=== PATIENT | female | born 1990 | race Caucasian/White ===

== ENCOUNTER 2017-10-31 08:42 | Emergency (ER) | payer MEDICAID ==
[2017-10-31] MEDS ORDERED: Sodium Chloride 0.9% 1,000 ML IV SCH ×3 (09:30→11:30)
[2017-10-31] MEDS ORDERED: Ondansetron 4 MG/2 ML SDV IVPUSH ONE ×2 (09:32→11:21)
--- NOTE | 2017-10-31 09:32 | EDM.PDOC ---
ED HPI GENERAL MEDICAL PROBLEM - General Chief Complaint: Gastrointestinal Problem Stated Complaint: LEFT SIDE PAIN,LIGHTHEADED,VOMITING Time Seen by Provider: 10/31/17 09:32 Source of Information: Reports: Patient History Limitations: Reports: No Limitations - History of Present Illness INITIAL COMMENTS - FREE TEXT/NARRATIVE: pt is about 8 weeks and she is vomiting markdly. She has had problems with her previous pregnancies particularly her little girl. She has slight left lower abdomanal pain. She has no spotting. Onset: Gradual, Other ( She has vomited alot for the past 3 days. ) Duration: Day(s): Location: Reports: Abdomen, Other (pt is 8 weeks / ) Associated Symptoms: Reports: Nausea/Vomiting, Weakness - Related Data Allergies Allergy/AdvReac Type Severity Reaction Status Date / Time codeine Allergy Swelling Verified 10/31/17 08:59 iodine Allergy Itching Verified 10/31/17 08:59 Opioids - Morphine Analogues Allergy Rash Verified 10/31/17 08:59 scopolamine Allergy Other Verified 10/31/17 08:59 shellfish derived Allergy Rash Verified 10/31/17 08:59 Home Meds: Home Meds NK [No Known Home Meds] 10/31/17 [History] Past Medical History HEENT History: Reports: Impaired Vision Respiratory History: Reports: Asthma 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: Neurological History: Reports: Migraines - Past Surgical History HEENT Surgical History: Reports: Adenoidectomy, Tonsillectomy Female Surgical History: Reports: Oophorectomy Social & Family History - Tobacco Use Smoking Status *Q: Never Smoker - Recreational Drug Use Recreational Drug Use: No ED ROS GENERAL - Review of Systems Review Of Systems: See Below Constitutional: Reports: Weakness, Fatigue HEENT: Reports: No Symptoms Respiratory: Reports: No Symptoms Cardiovascular: Reports: No Symptoms Endocrine: Reports: No Symptoms GI/Abdominal: Reports: Abdominal Pain, Nausea, Vomiting : Reports: No Symptoms ED EXAM - Physical Exam Exam: See Below Text/Narrative:: pt arrived feeling weak and dry. She is about 8 weeks . Exam Limited By: No Limitations General Appearance: Alert, Anxious, Mild Distress Ears: Normal TMs Nose: Normal Inspection Throat/Mouth: Normal Inspection Head: Atraumatic Neck: Normal Inspection Respiratory/Chest: No Respiratory Distress Cardiovascular: Regular Rate, Rhythm, Tachycardia GI/Abdominal Exam: Soft, Non-Tender Rectal Exam: Deferred Neurological: Alert, Oriented, Normal Cognition Psychiatric: Normal Affect Course - Vital Signs Last Recorded V/S: Last Vital Signs Temp 36.6 C 10/31/17 08:55 Pulse 65 10/31/17 08:55 Resp 15 10/31/17 08:55 BP 119/79 10/31/17 08:55 Pulse Ox - Orders/Labs/Meds Orders: Active Orders 24 hr Category Date Time Status OB Ltd 1 or More Fetus [US] Stat Exams 10/31/17 12:06 Ordered OB Transvaginal [US] Stat Exams 10/31/17 12:06 Ordered CULTURE URINE [RM] Stat Lab 10/31/17 11:09 Received UA W/MICROSCOPIC [URIN] Urgent Lab 10/31/17 09:39 Ordered Sodium Chloride 0.9% [Normal Saline] 1,000 ml Med 10/31/17 09:30 Active IV ASDIRECTED Sodium Chloride 0.9% [Normal Saline] 1,000 ml Med 10/31/17 10:30 Active IV ASDIRECTED Sodium Chloride 0.9% [Normal Saline] 1,000 ml Med 10/31/17 11:30 Active IV ASDIRECTED Medication Orders Sodium Chloride (Normal Saline) 1,000 mls @ 999 mls/hr IV ASDIRECTED MICHAEL Last Admin: 10/31/17 09:40 Dose: 999 mls/hr Sodium Chloride (Normal Saline) 1,000 mls @ 999 mls/hr IV ASDIRECTED MICHAEL Last Admin: 10/31/17 10:41 Dose: 999 mls/hr Sodium Chloride (Normal Saline) 1,000 mls @ 999 mls/hr IV ASDIRECTED MICHAEL Last Admin: 10/31/17 11:37 Dose: 999 mls/hr Labs: Laboratory Tests 10/31/17 10/31/17 10/31/17 Range/Units 09:37 09:37 09:39 WBC 6.6 (4.5-11.0) K/uL RBC 4.88 (3.30-5.50) M/uL Hgb 14.5 (12.0-15.0) g/dL Hct 41.2 (36.0-48.0) % MCV 84 (80-98) fL MCH 30 (27-31) pg MCHC 35 (32-36) % Plt Count 270 (150-400) K/uL Neut % (Auto) 74 H (36-66) % Lymph % (Auto) 18 L (24-44) % [place] % (Auto) 7 H (2-6) % Eos % (Auto) 1 L (2-4) % Baso % (Auto) 0 (0-1) % Sodium 140 (140-148) mmol/L Potassium 3.6 (3.6-5.2) mmol/L Chloride 104 (100-108) mmol/L Carbon Dioxide 26 (21-32) mmol/L Anion Gap 10.1 (5.0-14.0) mmol/L BUN 7 (7-18) mg/dL Creatinine 0.7 (0.6-1.0) mg/dL Est Cr Clr Drug Dosing 117.39 mL/min Estimated GFR (MDRD) > 60 (>60) Glucose 86 (74-106) mg/dL Calcium 9.1 (8.5-10.1) mg/dL Total Bilirubin 0.4 (0.2-1.0) mg/dL AST 12 L (15-37) U/L ALT 22 (12-78) U/L Alkaline Phosphatase 54 (46-116) U/L Total Protein 7.1 (6.4-8.2) g/dL Albumin 3.9 (3.4-5.0) g/dL Globulin 3.2 (2.3-3.5) g/dL Albumin/Globulin Ratio 1.2 (1.2-2.2) Urine Color Yellow Urine Appearance Turbid Urine pH 7.0 (4.5-8.0) Ur Specific [place] 1.020 (1.008-1.030) Urine Protein Negative (NEGATIVE) mg/dL Urine Glucose (UA) Normal (NEGATIVE) mg/dL Urine Ketones Negative (NEGATIVE) mg/dL Urine Occult Blood Negative (NEGATIVE) Urine Nitrite Negative (NEGATIVE) Urine Bilirubin Small (NEGATIVE) Urine Urobilinogen 1 (NORMAL) mg/dL Ur Leukocyte Esterase Moderate (NEGATIVE) Urine RBC 0-5 (0-5) Urine WBC 5-10 H (0-5) Ur Epithelial Cells Many Amorphous Sediment Many Urine Bacteria Moderate Urine Mucus Few Meds: Medications Generic Name Dose Route Start Last Admin Trade Name Freq PRN Reason Stop Dose Admin Sodium Chloride 1,000 mls @ 999 mls/hr 10/31/17 09:30 10/31/17 09:40 Normal Saline IV 999 mls/hr ASDIRECTED MICHAEL Administration Sodium Chloride 1,000 mls @ 999 mls/hr 10/31/17 10:30 10/31/17 10:41 Normal Saline IV 999 mls/hr ASDIRECTED MICHAEL Administration Sodium Chloride 1,000 mls @ 999 mls/hr 10/31/17 11:30 10/31/17 11:37 Normal Saline IV 999 mls/hr ASDIRECTED MICHAEL Administration Discontinued Medications Generic Name Dose Route Start Last Admin Trade Name Freq PRN Reason Stop Dose Admin Ondansetron HCl 4 mg 10/31/17 09:32 10/31/17 09:46 Zofran IVPUSH 10/31/17 09:33 4 mg ONETIME ONE Administration Ondansetron HCl 4 mg 10/31/17 11:21 10/31/17 11:35 Zofran IVPUSH 10/31/17 11:22 4 mg ONETIME ONE Administration - Re-Assessments/Exams Free Text/Narrative Re-Assessment/Exam: 10/31/17 12:58 pt was given 3 liters of fluid and she is feeling better. She has had some pain in her left lower abdoman with a past history of a ovarian cyst. She had an US and the baby looked good and there was no large cyst in the left adnexal area. Departure - Departure Time of Disposition: 12:59 Disposition: Home, Self-Care 01 Condition: Fair Clinical Impression: Hyperemesis arising during , Dehydration - Discharge Information Referrals: PCP,None [Primary Care Provider] - Forms: ED Department Discharge Care Plan Goals: zoforan subling q6h prn for nausea, encourage fluids. - My Orders Last 24 Hours: My Active Orders 10/31/17 09:30 Sodium Chloride 0.9% [Normal Saline] 1,000 ml IV ASDIRECTED 10/31/17 09:39 UA W/MICROSCOPIC [URIN] Urgent 10/31/17 10:30 Sodium Chloride 0.9% [Normal Saline] 1,000 ml IV ASDIRECTED 10/31/17 11:09 CULTURE URINE [RM] Stat 10/31/17 11:30 Sodium Chloride 0.9% [Normal Saline] 1,000 ml IV ASDIRECTED 10/31/17 12:06 OB Ltd 1 or More Fetus [US] Stat OB Transvaginal [US] Stat - Assessment/Plan Last 24 Hours: My Active Orders 10/31/17 09:30 Sodium Chloride 0.9% [Normal Saline] 1,000 ml IV ASDIRECTED 10/31/17 09:39 UA W/MICROSCOPIC [URIN] Urgent 10/31/17 10:30 Sodium Chloride 0.9% [Normal Saline] 1,000 ml IV ASDIRECTED 10/31/17 11:09 CULTURE URINE [RM] Stat 10/31/17 11:30 Sodium Chloride 0.9% [Normal Saline] 1,000 ml IV ASDIRECTED 10/31/17 12:06 OB Ltd 1 or More Fetus [US] Stat OB Transvaginal [US] Stat
--- NOTE | 2017-10-31 13:33 | US ---
OB Ltd 1 or More Fetus, OB Transvaginal HISTORY: Left lower abdominal pain. COMPARISON: Ultrasound 10/18/2017. FINDINGS: There is a single live intrauterine gestation with a crown-rump length of 2.4 cm compatible with a ultrasound age of 9 weeks 1 day. There is been normal range interval growth from prior ultras ound. Yolk sac is identified. Estimated date of confinement is 06/04/2018. heart rate 167 bpm. The left ovary appears normal the maternal right ovary has been removed by history. Impression: 1. Early live intrauterine gestation 9 weeks 1 day with no complications seen.
== END 2017-10-31 13:35 | disposition home or self-care (01) ==
LOC: JP.ED 08:42
DX: O21.0 Mild hyperemesis gravidarum (principal); O99.281 Endocrine, nutritional and metabolic diseases complicating pregnancy, first trimester; E86.0 Dehydration; Z88.5 Allergy status to narcotic agent; Z88.8 Allergy status to other drugs, medicaments and biological substances; Z91.013 Allergy to seafood; Z3A.08 8 weeks gestation of pregnancy
CPT/HCPCS: 36415; 76815; 76817; 80053; 81001; 85025; 87086; 96361; 96374; 96376; 99284; J2405; J7040

== ENCOUNTER 2017-11-03 21:19 | Emergency (ER) | payer MEDICAID ==
[2017-11-03] MEDS ORDERED: Ondansetron 4 MG/2 ML SDV IVPUSH ONE (22:00)
[2017-11-03] MEDS ORDERED: Sodium Chloride 0.9% 1,000 ML IV SCH (22:00)
--- NOTE | 2017-11-03 22:34 | EDM.PDOC ---
ED HPI GENERAL MEDICAL PROBLEM - General Chief Complaint: General Stated Complaint: DEHYDRATED Time Seen by Provider: 11/03/17 22:00 Source of Information: Reports: Patient History Limitations: Reports: No Limitations - History of Present Illness INITIAL COMMENTS - FREE TEXT/NARRATIVE: 27-year-old female about 9 weeks along with her third has developed some persistent nausea and vomiting over the past several weeks. She was in 2 days ago, had a very complete workup including blood work, ultrasound that was very reassuring but today her emesis is persistent despite Zofran. No fevers or chills but she was getting dizzy and lightheaded. She took her Zofran at 11 AM, did keep her noon meal down but then redeveloped emesis, I'm unsure why she didn 't take any Zofran this evening. Severity: Moderate Associated Symptoms: Reports: Other (Think she may be constipated). Denies: Fever/Chills, Headaches, Shortness of Breath - Related Data Allergies Allergy/AdvReac Type Severity Reaction Status Date / Time codeine Allergy Swelling Verified 11/03/17 21:44 iodine Allergy Itching Verified 11/03/17 21:44 Opioids - Morphine Analogues Allergy Rash Verified 11/03/17 21:44 scopolamine Allergy Other Verified 11/03/17 21:44 shellfish derived Allergy Rash Verified 11/03/17 21:44 Home Meds: Home Meds NK [No Known Home Meds] 10/31/17 [History] Past Medical History HEENT History: Reports: Impaired Vision Respiratory History: Reports: Asthma [employer] History: Reports: Neurological History: Reports: Migraines - Past Surgical History HEENT Surgical History: Reports: Adenoidectomy, Tonsillectomy Female Surgical History: Reports: Oophorectomy Social & Family History - Tobacco Use Smoking Status *Q: Never Smoker - Caffeine Use Caffeine Use: Reports: None - Recreational Drug Use Recreational Drug Use: No ED ROS GENERAL - Review of Systems Review Of Systems: See Below Constitutional: Reports: Malaise. Denies: Fever, Chills HEENT: Denies: Throat Pain Respiratory: Denies: Shortness of Breath, Cough Cardiovascular: Denies: Chest Pain GI/Abdominal: Reports: Constipation, Nausea, Vomiting. Denies: Abdominal Pain : Reports: No Symptoms Skin: Reports: No Symptoms Neurological: Reports: Dizziness ED EXAM, GENERAL - Physical Exam Exam: See Below Exam Limited By: No Limitations General Appearance: Alert, Mild Distress (Actively vomiting and appears uncomfortable) Eye Exam: Bilateral Eye: Normal Inspection (Normal hydration) Respiratory/Chest: No Respiratory Distress Cardiovascular: Regular Rate, Rhythm. No: Tachycardia Extremities: Normal Inspection Neurological: Alert, Oriented Psychiatric: Normal Affect, Normal Mood Skin Exam: Warm, Dry Course - Vital Signs Last Recorded V/S: Last Vital Signs Temp 98.3 F 11/03/17 21:51 Pulse 72 11/03/17 21:51 Resp 15 11/03/17 21:51 BP 129/86 11/03/17 21:51 Pulse Ox 100 11/03/17 21:51 - Orders/Labs/Meds Meds: Medications Discontinued Medications Generic Name Dose Route Start Last Admin Trade Name Carlosq PRN Reason Stop Dose Admin Sodium Chloride 1,000 mls @ 1,000 mls/hr 11/03/17 22:00 11/03/17 22:15 Normal Saline IV 1,000 mls/hr ASDIRECTED MICHAEL Administration Ondansetron HCl 4 mg 11/03/17 22:00 11/03/17 22:16 Zofran IVPUSH 11/03/17 22:01 4 mg ONETIME ONE Administration - Re-Assessments/Exams Free Text/Narrative Re-Assessment/Exam: 11/03/17 22:33 Patient was given 1 L of normal saline along with 4 mg of IV Zofran. She is to use her Zofran on an as-needed basis. 11/03/17 23:01 After the IV Zofran, the patient remained comfortable while getting IV fluids. She should follow up as needed, and continue her when necessary Zofran. Departure - Departure Time of Disposition: 23:20 Disposition: Home, Self-Care 01 Condition: Good Clinical Impression: Hyperemesis arising during - Discharge Information Instructions: Nausea and Vomiting, Adult, [id number] Referrals: PCP,None [Primary Care Provider] - Forms: ED Department Discharge Care Plan Goals: Concentrate on fluids tonight, and increase diet and activity as tolerated. Use Zofran on a regular basis if needed. Return if persistent vomiting and medications are not working.
== END 2017-11-03 23:21 | disposition home or self-care (01) ==
LOC: JP.ED 21:19
DX: O21.0 Mild hyperemesis gravidarum (principal); Z88.5 Allergy status to narcotic agent; Z88.8 Allergy status to other drugs, medicaments and biological substances; Z3A.09 9 weeks gestation of pregnancy; Z91.013 Allergy to seafood
CPT/HCPCS: 96374; 99284; J2405; J7040

== ENCOUNTER 2017-12-05 21:02 | Emergency (ER) | payer MEDICAID ==
[2017-12-05] MEDS ORDERED: Sodium Chloride 0.9% 10 ML Syringe FLUSH PRN (21:12)
[2017-12-05] MEDS ORDERED: Metoclopramide 10 MG/2 ML SDV IVPUSH ONE (21:12)
[2017-12-05] MEDS ORDERED: diphenhydrAMINE 50 MG/ML SDV IVPUSH ONE (21:12)
[2017-12-05] MEDS ORDERED: Sodium Chloride 0.9% 1,000 ML IV SCH (21:15)
--- NOTE | 2017-12-05 21:20 | EDM.PDOC ---
ED HPI GENERAL MEDICAL PROBLEM - General Chief Complaint: Headache Stated Complaint: MIGRAINE/VOMITING/14 WKS PG Time Seen by Provider: 12/05/17 21:15 Source of Information: Reports: Patient History Limitations: Reports: No Limitations - History of Present Illness INITIAL COMMENTS - FREE TEXT/NARRATIVE: Abigail is a 27-year-old female who presents to the emergency department today with complaints of a migraine headache that started this afternoon. Patient reports history of migraine headaches, she endorses nausea and several episodes of vomiting prior to arrival here. Patient is an estimated 13 weeks , she does complains of what she feels is ligament pain on the right lower side of her pelvis that gets worse with movement much like the ligament pain she had with her prior . Patient denies any fever, head trauma or vaginal bleeding/discharge. Patient denies any photophobia. Patient has not taken any medications for her symptoms secondary to the vomiting. 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 - Physical Exam Exam: See Below Exam Limited By: No Limitations General Appearance: Alert, Anxious Eye Exam: Bilateral Eye: EOMI, Nystagmus (right and left lateral gaze, one beat) , PERRL Throat/Mouth: Normal Inspection, Normal Oropharynx Head Exam: Atraumatic Neck: Supple, Non-Tender, Full Range of Motion Respiratory/Chest: No Respiratory Distress, Lungs Clear Cardiovascular: Normal Peripheral Pulses, No Murmur, Tachycardia GI/Abdominal: Normal Bowel Sounds, Soft, Tender (mild, right pelvis/groin area) , Other (no tenderness at Mcburney's point negative rovsing sign) Neuro Exam (Abbreviated): Alert, Oriented, CN II-XII Intact Extremities: Normal Inspection Psychiatric: Anxious Skin Exam: Warm, Dry, Intact Course - Vital Signs Last Recorded V/S: Last Vital Signs Temp 36.7 C 12/05/17 21:14 Pulse 107 H 12/05/17 21:14 Resp 18 12/05/17 21:14 BP 123/77 12/05/17 21:14 Pulse Ox 100 12/05/17 21:14 Abigail is a 27 year old female who presents to the ED today with c/o migraine headache. Please refer to history of present illness and focused exam. Patient on arrival here is mildly tachycardic, she is normotensive and afebrile. Peripheral IV was established, patient was given a liter of normal saline with Reglan and Benadryl for her nausea, vomiting, and headache. Blood work was obtained given patient's complaints of right groin pain, she doesn't mild leukocytosis is not tender at McBurney's point and afebrile so I feel an acute appendicitis is unlikely. Temp and metabolic panel returns with a mildly low sodium of 138, potassium is 3.4 consistent with a mild hypokalemia, anion gap is mildly elevated at 15.4. Remaining CMP is unremarkable. UA is negative for infection. Patient is feeling much better here after fluids and medications. I feel patient is stable to be discharged home with ongoing supportive care and cleaning adequate hydration, vitamins and I will supply her with Zofran for nausea and vomiting. Patient was strongly encouraged to follow up with BILING[employer] TEACHER this next week for follow-up. If patient's right groin pain migrates towards her right lower quadrants where she develops a fever or any other worsening symptoms I would like her reevaluated, other reasons to return to the emergency department were discussed, patient is agreeable to plan of care and was discharged in stable condition. - Orders/Labs/Meds Orders: Active Orders 24 hr Category Date Time Status Peripheral IV Care [RC] . DIRECTED Care 12/05/17 21:12 Active RT Aerosol Therapy [RC] ASDIRECTED Care 12/05/17 21:27 Active URINALYSIS W/MICROSCOPIC [UA W/MICROSCOPIC] [URIN] Stat Lab 12/05/17 21:44 Ordered Sodium Chloride 0.9% [Normal Saline] 1,000 ml Med 12/05/17 21:15 Active IV ASDIRECTED Sodium Chloride 0.9% [Saline Flush] Med 12/05/17 21:12 Active 10 ml FLUSH ASDIRECTED PRN Peripheral IV Insertion Adult [OM.PC] Routine Oth 12/05/17 21:12 Ordered Medication Orders Sodium Chloride (Normal Saline) 1,000 mls @ 999 mls/hr IV ASDIRECTED MICHAEL Last Admin: 12/05/17 21:24 Dose: 999 mls/hr Sodium Chloride (Saline Flush) 10 ml FLUSH ASDIRECTED PRN PRN Reason: Keep Vein Open Last Admin: 12/05/17 21:27 Dose: 10 ml Labs: Laboratory Tests 12/05/17 12/05/17 12/05/17 Range/Units 21:25 21:25 21:44 WBC 11.4 H (4.5-11.0) K/uL RBC 4.78 (3.30-5.50) M/uL Hgb 14.4 (12.0-15.0) g/dL Hct 39.8 (36.0-48.0) % MCV 83 (80-98) fL MCH 30 (27-31) pg MCHC 36 (32-36) % Plt Count 269 (150-400) K/uL Neut % (Auto) 83 H (36-66) % Lymph % (Auto) 11 L (24-44) % [place] % (Auto) 5 (2-6) % Eos % (Auto) 1 L (2-4) % Baso % (Auto) 0 (0-1) % Sodium 138 L (140-148) mmol/L Potassium 3.4 L (3.6-5.2) mmol/L Chloride 103 (100-108) mmol/L Carbon Dioxide 23 (21-32) mmol/L Anion Gap 15.4 H (5.0-14.0) mmol/L BUN 4 L (7-18) mg/dL Creatinine 0.7 (0.6-1.0) mg/dL Est Cr Clr Drug Dosing 121.78 mL/min Estimated GFR (MDRD) > 60 (>60) Glucose 90 (74-106) mg/dL Calcium 8.8 (8.5-10.1) mg/dL Total Bilirubin 0.3 (0.2-1.0) mg/dL AST 13 L (15-37) U/L ALT 22 (12-78) U/L Alkaline Phosphatase 57 (46-116) U/L Total Protein 7.2 (6.4-8.2) g/dL Albumin 3.5 (3.4-5.0) g/dL Globulin 3.7 H (2.3-3.5) g/dL Albumin/Globulin Ratio 1.0 L (1.2-2.2) Urine Color Yellow Urine Appearance Slightly cloudy Urine pH 6.0 (4.5-8.0) Ur Specific [place] 1.025 (1.008-1.030) Urine Protein Negative (NEGATIVE) mg/dL Urine Glucose (UA) Normal (NEGATIVE) mg/dL Urine Ketones Negative (NEGATIVE) mg/dL Urine Occult Blood Negative (NEGATIVE) Urine Nitrite Negative (NEGATIVE) Urine Bilirubin Negative (NEGATIVE) Urine Urobilinogen Normal (NORMAL) mg/dL Ur Leukocyte Esterase Negative (NEGATIVE) Urine RBC Not seen (0-5) Urine WBC 0-5 (0-5) Ur Epithelial Cells Many Amorphous Sediment Not seen Urine Bacteria Moderate Urine Mucus Few Meds: Medications Generic Name Dose Route Start Last Admin Trade Name Freq PRN Reason Stop Dose Admin Sodium Chloride 1,000 mls @ 999 mls/hr 12/05/17 21:15 12/05/17 21:24 Normal Saline IV 999 mls/hr ASDIRECTED MICHAEL Administration Sodium Chloride 10 ml 12/05/17 21:12 12/05/17 21:27 Saline Flush FLUSH 10 ml ASDIRECTED PRN Administration Keep Vein Open Discontinued Medications Generic Name Dose Route Start Last Admin Trade Name Freq PRN Reason Stop Dose Admin Albuterol 2.5 mg 12/05/17 21:27 12/05/17 21:31 Proventil Neb Soln NEB 12/05/17 21:28 2.5 mg ONETIME ONE Administration Diphenhydramine HCl 50 mg 12/05/17 21:12 12/05/17 21:24 Benadryl IVPUSH 12/05/17 21:13 50 mg ONETIME ONE Administration Metoclopramide HCl 10 mg 12/05/17 21:12 12/05/17 21:24 Reglan IVPUSH 12/05/17 21:13 10 mg ONETIME ONE Administration Departure - Departure Time of Disposition: 23:00 Disposition: Home, Self-Care 01 Clinical Impression: Migraine - Discharge Information Instructions: Migraine Headache, [id number] Referrals: PCP,None [Primary Care Provider] - Forms: ED Department Discharge, Interfacility Transfer EMTALA Additional Instructions: Stay well hydrated. Tylenol for headache as needed. Zofran as needed as prescribed for nausea and vomiting. You need to establish primary OB care and follow-up in the next week. - My Orders Last 24 Hours: My Active Orders 12/05/17 21:12 Peripheral IV Care [RC] . DIRECTED Sodium Chloride 0.9% [Saline Flush] 10 ml FLUSH ASDIRECTED PRN Peripheral IV Insertion Adult [OM.PC] Routine 12/05/17 21:15 Sodium Chloride 0.9% [Normal Saline] 1,000 ml IV ASDIRECTED 12/05/17 21:27 RT Aerosol Therapy [RC] ASDIRECTED 12/05/17 21:44 URINALYSIS W/MICROSCOPIC [UA W/MICROSCOPIC] [URIN] Stat - Assessment/Plan Last 24 Hours: My Active Orders 12/05/17 21:12 Peripheral IV Care [RC] . DIRECTED Sodium Chloride 0.9% [Saline Flush] 10 ml FLUSH ASDIRECTED PRN Peripheral IV Insertion Adult [OM.PC] Routine 12/05/17 21:15 Sodium Chloride 0.9% [Normal Saline] 1,000 ml IV ASDIRECTED 12/05/17 21:27 RT Aerosol Therapy [RC] ASDIRECTED 12/05/17 21:44 URINALYSIS W/MICROSCOPIC [UA W/MICROSCOPIC] [URIN] Stat
[2017-12-05] MEDS ORDERED: Albuterol 0.083% 2.5 MG/3 ML Neb Soln NEB ONE (21:27)
[2017-12-05] MEDS ORDERED: Ondansetron 4 MG/2 ML SDV IVPUSH ONE (22:04)
== END 2017-12-05 22:26 | disposition home or self-care (01) ==
LOC: JP.ED 21:02
DX: G43.909 Migraine, unspecified, not intractable, without status migrainosus (principal); Z88.5 Allergy status to narcotic agent; Z91.09 Other allergy status, other than to drugs and biological substances; Z91.013 Allergy to seafood
CPT/HCPCS: 36415; 80053; 81001; 85025; 94640; 96361; 96374; 96375; 99284; J1200; J2405; J2765; J7040; J7050

== ENCOUNTER 2020-01-16 08:49 | Emergency (ER) | payer OTHER ==
[2020-01-16] MEDS ORDERED: Albuterol 8 GM Inhaler INH ONE (10:29)
--- NOTE | 2020-01-16 10:41 | EDM.PDOC ---
ED HPI GENERAL MEDICAL PROBLEM - General Chief Complaint: General Stated Complaint: RAPID HEARTRATE,COUGH,BODY ACHES,FEVER Time Seen by Provider: 01/16/20 10:15 Source of Information: Reports: Patient History Limitations: Reports: No Limitations - History of Present Illness INITIAL COMMENTS - FREE TEXT/NARRATIVE: This is a 29 yo who presents with concerns of cough. Symptoms have been ongoing approx two days. Cough has been productive of clear sputum. Some associated pleuritic chest pain and fevers. Son diagnosed with respiratory infection several days ago. Mild dyspnea. No recent travel or other sick contract. No LE swelling or pain. Does have hx of asthma, has been off inhaler for some time. chest wall Pain Score (Numeric/FACES): 7 - Related Data Allergies Allergy/AdvReac Type Severity Reaction Status Date / Time codeine Allergy Swelling Verified 01/16/20 09:38 iodine Allergy Itching Verified 01/16/20 09:38 Opioids - Morphine Analogues Allergy Rash Verified 01/16/20 09:38 shellfish derived Allergy Rash Verified 01/16/20 09:38 scopolamine AdvReac Other Verified 01/16/20 09:38 Home Meds: Home Meds Albuterol [Ventolin HFA] 2 puff INH Q6H PRN 05/20/18 [History] Ondansetron [Zofran ODT] 4 mg PO Q6H PRN 05/20/18 [History] #103/Iron Fumarate/Fa [ ] 1 tab PO DAILY 05/20/18 [History] Ferrous Sulfate 325 mg PO BID #60 tablet 06/09/18 [Rx] Albuterol [Proventil Neb Soln] 2.5 mg .XX BID PRN 01/16/20 [History] Sertraline [Zoloft] 50 mg PO DAILY 01/16/20 [History] Past Medical History HEENT History: Reports: Impaired Vision Respiratory History: Reports: Asthma Gastrointestinal History: Reports: GERD Genitourinary History: Reports: UTI, Recurrent RUG SIZER History: Reports: Other RUG SIZER History: OWEN-06/06/2018 Neurological History: Reports: Migraines Psychiatric History: Reports: Anxiety Dermatologic History: Reports: Psoriasis - Past Surgical History HEENT Surgical History: Reports: Adenoidectomy, Tonsillectomy Female Surgical History: Reports: Oophorectomy, Tubal Ligation Social & Family History - Family History Family Medical History: Noncontributory - Tobacco Use Smoking Status *Q: Never Smoker - Caffeine Use Caffeine Use: Reports: Coffee - Recreational Drug Use Recreational Drug Use: No ED ROS GENERAL - Review of Systems Review Of Systems: See Below Constitutional: Reports: No Symptoms HEENT: Reports: No Symptoms Respiratory: Reports: Shortness of Breath, Cough Cardiovascular: Reports: No Symptoms Endocrine: Reports: No Symptoms GI/Abdominal: Reports: No Symptoms : Reports: No Symptoms Musculoskeletal: Reports: No Symptoms Skin: Reports: No Symptoms Neurological: Reports: No Symptoms Psychiatric: Reports: No Symptoms Hematologic/Lymphatic: Reports: No Symptoms Immunologic: Reports: No Symptoms ED EXAM, GENERAL - Physical Exam Exam: See Below Exam Limited By: No Limitations General Appearance: Alert, No Apparent Distress Nose: Normal Inspection Throat/Mouth: Normal Inspection Head: Atraumatic, Normocephalic Respiratory/Chest: Lungs Clear Cardiovascular: Tachycardia GI/Abdominal: Soft, Non-Tender Back Exam: Normal Inspection Extremities: Normal Inspection Neurological: Alert, Oriented Psychiatric: Normal Affect, Normal Mood Skin Exam: Warm, Dry Course - Vital Signs Last Recorded V/S: Last Vital Signs Temp 36.8 C 01/16/20 09:48 Pulse 100 01/16/20 09:48 Resp 16 01/16/20 09:48 BP 130/79 01/16/20 09:48 Pulse Ox 99 01/16/20 09:48 - Orders/Labs/Meds Orders: Active Orders 24 hr Category Date Time Status RT Post Treatment Assessment [RC] Click to Edit Care 01/16/20 10:29 Active CORONAVIRUS COVID-19, [facility] Stat Lab 01/16/20 10:52 Received Meds: Medications Discontinued Medications Generic Name Dose Route Start Last Admin Trade Name Freq PRN Reason Stop Dose Admin Albuterol 1 gm 01/16/20 10:29 01/16/20 10:38 Ventolin Hfa INH 01/16/20 10:30 2 puff ONETIME ONE Administration - Re-Assessments/Exams Free Text/Narrative Re-Assessment/Exam: 29 yo presents with concerns of cough Noted to be tachycardic on exam. Lungs clear. Has sick contact at home. No s/s of DVT, do not believe we need PE Work up Suspect this is infectious, most likely viral. Will obtain CXR [place] albuterol HFA Swabbing for COVID, will need to self isolate until returns If imaging unrevealing will discharge with supportive cares. 01/16/20 10:49 Free Text/Narrative Re-Assessment/Exam: CXR showed possible LLL pneumonia. Started on z alonso Stressed importance of isolation until COVID returns and discussed return precautions. 01/16/20 19:10 Departure - Departure Time of Disposition: 12:17 Disposition: Home, Self-Care 01 Clinical Impression: Pneumonia Qualifiers: Pneumonia type: due to unspecified organism Laterality: left Lung location: lower lobe of lung Qualified Code(s): J18.9 - Pneumonia, unspecified organism - Discharge Information *PRESCRIPTION DRUG MONITORING PROGRAM REVIEWED*: No *COPY OF PRESCRIPTION DRUG MONITORING REPORT IN PATIENT HOWIE: No Instructions: Community-Acquired Pneumonia, Adult Referrals: Hamida Cheng CNM [Primary Care Provider] - Forms: ED Department Discharge Additional Instructions: You have a pneumonia on your x ray. Take the prescribed antibiotics We cannot exclude a COVID 19 infection, you and your family need to self isolate until your results return. Sepsis Event Note (ED) - Evaluation Sepsis Screening Result: No Definite Risk - Focused Exam Vital Signs: Vital Signs Temp Pulse Resp BP Pulse Ox 01/16/20 09:48 36.8 C 100 16 130/79 99 01/16/20 09:28 36.8 C 100 16 130/79 99 - My Orders Last 24 Hours: My Active Orders 01/16/20 10:29 RT Post Treatment Assessment [RC] Click to Edit 01/16/20 10:52 CORONAVIRUS COVID-19, [facility] Stat - Assessment/Plan Last 24 Hours: My Active Orders 01/16/20 10:29 RT Post Treatment Assessment [RC] Click to Edit 01/16/20 10:52 CORONAVIRUS COVID-19, [facility] Stat
--- NOTE | 2020-01-16 11:44 | CR ---
CHEST: 2 view CLINICAL HISTORY:Short of breath COMPARISON:None FINDINGS: Heart size and pulmonary vascularity are normal. There is a moderate-sized left lower lobe pneumonia. IMPRESSION: Left lower lobe pneumonia
== END 2020-01-16 12:25 | disposition home or self-care (01) ==
LOC: JP.ED 08:49
DX: J18.9 Pneumonia, unspecified organism (principal); J45.909 Unspecified asthma, uncomplicated; F41.9 Anxiety disorder, unspecified; Z79.899 Other long term (current) drug therapy; Z88.5 Allergy status to narcotic agent; Z91.09 Other allergy status, other than to drugs and biological substances; Z91.013 Allergy to seafood; Z20.828 Contact with and (suspected) exposure to other viral communicable diseases
CPT/HCPCS: 71046; 87635; 94640; 99285; A9270; 99284; U0002

== ENCOUNTER 2021-06-17 12:45 | Emergency (ER) | payer BC, OTHER ==
--- NOTE | 2021-06-17 14:50 | EDM.PDOC ---
<OfficerVicente - Last Filed: 06/17/21 14:48> ED HPI GENERAL MEDICAL PROBLEM - General Chief Complaint: General Stated Complaint: REACTION TO VACCINE Time Seen by Provider: 06/17/21 14:44 Source of Information: Reports: Patient, RN Notes Reviewed History Limitations: Reports: No Limitations - History of Present Illness INITIAL COMMENTS - FREE TEXT/NARRATIVE: 30-year-old female presents emergency department today with multiple complaints including body aches fevers chills low back pain she states she has not been able to urinate as much as usual. Did receive Mederna first dose yesterday. Lower Back Pain Score (Numeric/FACES): 6 - Related Data Allergies Allergy/AdvReac Type Severity Reaction Status Date / Time codeine Allergy Swelling Verified 06/17/21 14:33 iodine Allergy Itching Verified 06/17/21 14:33 Opioids - Morphine Analogues Allergy Rash Verified 06/17/21 14:33 shellfish derived Allergy Rash Verified 06/17/21 14:33 scopolamine AdvReac Other Verified 06/17/21 14:33 Home Meds: Home Meds Albuterol [Ventolin HFA] 2 puff INH Q6H PRN 05/20/18 [History] Ferrous Sulfate 325 mg PO BID #60 tablet 06/09/18 [Rx] Albuterol [Proventil Neb Soln] 2.5 mg .XX BID PRN 01/16/20 [History] Magnesium 30 mg PO DAILY 06/17/21 [History] cephALEXin [Cephalexin] 500 mg PO TID #16 capsule 06/17/21 [Rx] Past Medical History HEENT History: Reports: Impaired Vision Respiratory History: Reports: Asthma Gastrointestinal History: Reports: GERD Genitourinary History: Reports: UTI, Recurrent 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 ARCHITECT History: OWEN-06/06/2018 Neurological History: Reports: Migraines Psychiatric History: Reports: Anxiety Dermatologic History: Reports: Psoriasis - Past Surgical History HEENT Surgical History: Reports: Adenoidectomy, Tonsillectomy Female Surgical History: Reports: Oophorectomy, Tubal Ligation Social & Family History - Family History Family Medical History: No Pertinent Family History - Tobacco Use Tobacco Use Status *Q: Never Tobacco User - Caffeine Use Caffeine Use: Reports: Coffee - Recreational Drug Use Recreational Drug Use: No ED ROS GENERAL - Review of Systems Review Of Systems: See Below Constitutional: Reports: Fever, Chills, Weakness, Fatigue HEENT: Reports: No Symptoms Respiratory: Reports: No Symptoms Cardiovascular: Reports: No Symptoms GI/Abdominal: Reports: No Symptoms : Reports: Incontinence Musculoskeletal: Reports: Muscle Pain ED EXAM, GENERAL - Physical Exam Exam: See Below Exam Limited By: No Limitations General Appearance: Alert, WD/WN, No Apparent Distress Respiratory/Chest: No Respiratory Distress, Lungs Clear, Normal Breath Sounds, No Accessory Muscle Use, Chest Non-Tender Cardiovascular: Regular Rate, Rhythm, No Murmur GI/Abdominal: Soft, Non-Tender Back Exam: Normal Inspection, Full Range of Motion, CVA Tenderness (R). No: CVA Tenderness (L) Departure - Departure Disposition: Home, Self-Care 01 Clinical Impression: Cystitis, Mild dehydration, Hypokalemia Vaccine reaction Qualifiers: Encounter type: initial encounter Qualified Code(s): T50.Z95A - Adverse effect of other vaccines and biological substances, initial encounter - Discharge Information Instructions: Hypokalemia, Urinary Tract Infection, Adult, [id number] Referrals: PCP,None [Primary Care Provider] - Forms: ED Department Discharge Additional Instructions: Drink ample amounts of fluids so that your urine stays very light yellow. Take acetaminophen 1000 mg every 6 hrs until your fever resolves. A prescription for the antibiotic cephalexin was sent to [facility] for your bladder infection, you will need to start this tomorrow by supper time. Recheck tomorrow in the clinic or here if you are not improving markedly. Eat foods more rich in potassium due to your slightly low potassium level today. Sepsis Event Note (ED) - Evaluation Sepsis Screening Result: No Definite Risk <Kushal lBake G - Last Filed: 06/17/21 22:24> Course - Vital Signs Last Recorded V/S: Last Vital Signs Temp 37.7 C 06/17/21 22:12 Pulse 128 H 06/17/21 21:31 Resp 20 06/17/21 21:31 BP 107/70 06/17/21 21:31 Pulse Ox 96 06/17/21 21:31 - Orders/Labs/Meds Orders: Active Orders 24 hr Category Date Time Status Peripheral IV Care [RC] . DIRECTED Care 06/17/21 17:09 Active CULTURE URINE [RM] Urgent Lab 06/17/21 17:08 Received Sodium Chloride 0.9% [Normal Saline] 1,000 ml Med 06/17/21 17:15 Active IV ASDIRECTED Sodium Chloride 0.9% [Normal Saline] 1,000 ml Med 06/17/21 18:45 Active IV ASDIRECTED Sodium Chloride 0.9% [Saline Flush] Med 06/17/21 17:08 Active 10 ml FLUSH ASDIRECTED PRN Peripheral IV Insertion Adult [OM.PC] Urgent Oth 06/17/21 17:08 Ordered Medication Orders Sodium Chloride (Normal Saline) 1,000 mls @ 500 mls/hr IV ASDIRECTED MICHAEL Last Admin: 06/17/21 17:39 Dose: 500 mls/hr Documented by: DAYO Sodium Chloride (Normal Saline) 1,000 mls @ 999 mls/hr IV ASDIRECTED MICHAEL Last Admin: 06/17/21 20:45 Dose: 999 mls/hr Documented by: MALIKA Sodium Chloride (Sodium Chloride 0.9% 10 Ml Syringe) 10 ml FLUSH ASDIRECTED PRN PRN Reason: Keep Vein Open Last Admin: 06/17/21 21:51 Dose: 10 ml Documented by: MALIKA Labs: Laboratory Tests 06/17/21 06/17/21 06/17/21 Range/Units 14:55 14:57 14:57 WBC 7.8 (4.5-11.0) K/uL RBC 4.70 (3.30-5.50) M/uL Hgb 13.6 D (12.0-15.0) g/dL Hct 40.1 (36.0-48.0) % MCV 85 (80-98) fL MCH 29 (27-31) pg MCHC 34 (32-36) % Plt Count 259 (150-400) K/uL Neut % (Auto) 84.9 H (36-66) % Lymph % (Auto) 9.0 L (24-44) % Caroline % (Auto) 5.6 (2-6) % Eos % (Auto) 0.1 L (2-4) % Baso % (Auto) 0.4 (0-1) % D-Dimer, Quantitative 757.67 H (0.0-500.0) ng/mL Sodium 135 L (140-148) mmol/L Potassium 3.3 L (3.6-5.2) mmol/L Chloride 102 (100-108) mmol/L Carbon Dioxide 22 (21-32) mmol/L Anion Gap 14.3 H (5.0-14.0) mmol/L BUN 9 D (7-18) mg/dL Creatinine 0.9 (0.6-1.0) mg/dL Est Cr Clr Drug Dosing 88.88 mL/min Estimated GFR (MDRD) > 60 (>60) Glucose 98 (74-106) mg/dL Lactic Acid (0.4-2.0) mmol/L Calcium 8.5 (8.5-10.1) mg/dL Total Bilirubin 0.5 D (0.2-1.0) mg/dL AST 16 (15-37) U/L ALT 21 (12-78) U/L Alkaline Phosphatase 66 (46-116) U/L C-Reactive Protein (0.0-0.3) mg/dL Total Protein 7.2 (6.4-8.2) g/dL Albumin 3.7 (3.4-5.0) g/dL Globulin 3.5 (2.3-3.5) g/dL Albumin/Globulin Ratio 1.1 L (1.2-2.2) Urine Color (YELLOW) Urine Appearance (CLEAR) Urine pH (5.0-8.0) Ur Specific [place] (1.008-1.030) Urine Protein (NEGATIVE) mg/dL Urine Glucose (UA) (NEGATIVE) mg/dL Urine Ketones (NEGATIVE) mg/dL Urine Occult Blood (NEGATIVE) Urine Nitrite (NEGATIVE) Urine Bilirubin (NEGATIVE) Urine Urobilinogen (0.2-1.0) EU/dL Ur Leukocyte Esterase (NEGATIVE) Urine RBC (0-5) Urine WBC (0-5) Ur Epithelial Cells Amorphous Sediment Urine Bacteria Urine Mucus SARS CoV-2 RNA Rapid [facility] 06/17/21 06/17/21 06/17/21 Range/Units 14:57 14:57 15:41 WBC (4.5-11.0) K/uL RBC (3.30-5.50) M/uL Hgb (12.0-15.0) g/dL Hct (36.0-48.0) % MCV (80-98) fL MCH (27-31) pg MCHC (32-36) % Plt Count (150-400) K/uL Neut % (Auto) (36-66) % Lymph % (Auto) (24-44) % Caroline % (Auto) (2-6) % Eos % (Auto) (2-4) % Baso % (Auto) (0-1) % D-Dimer, Quantitative (0.0-500.0) ng/mL Sodium (140-148) mmol/L Potassium (3.6-5.2) mmol/L Chloride (100-108) mmol/L Carbon Dioxide (21-32) mmol/L Anion Gap (5.0-14.0) mmol/L BUN (7-18) mg/dL Creatinine (0.6-1.0) mg/dL Est Cr Clr Drug Dosing mL/min Estimated GFR (MDRD) (>60) Glucose (74-106) mg/dL Lactic Acid 0.6 (0.4-2.0) mmol/L Calcium (8.5-10.1) mg/dL Total Bilirubin (0.2-1.0) mg/dL AST (15-37) U/L ALT (12-78) U/L Alkaline Phosphatase (46-116) U/L C-Reactive Protein 7.53 H (0.0-0.3) mg/dL Total Protein (6.4-8.2) g/dL Albumin (3.4-5.0) g/dL Globulin (2.3-3.5) g/dL Albumin/Globulin Ratio (1.2-2.2) Urine Color Yellow (YELLOW) Urine Appearance Slightly cloudy A (CLEAR) Urine pH 5.5 (5.0-8.0) Ur Specific [place] >= 1.030 (1.008-1.030) Urine Protein 30 H (NEGATIVE) mg/dL Urine Glucose (UA) Negative (NEGATIVE) mg/dL Urine Ketones 15 H (NEGATIVE) mg/dL Urine Occult Blood Trace-intact H (NEGATIVE) Urine Nitrite Negative (NEGATIVE) Urine Bilirubin Small H (NEGATIVE) Urine Urobilinogen 1.0 (0.2-1.0) EU/dL Ur Leukocyte Esterase Negative (NEGATIVE) Urine RBC 5-10 H (0-5) Urine WBC 10-20 H (0-5) Ur Epithelial Cells Many Amorphous Sediment Not seen Urine Bacteria Moderate Urine Mucus Moderate SARS CoV-2 RNA Rapid [facility] 06/17/21 Range/Units 16:24 WBC (4.5-11.0) K/uL RBC (3.30-5.50) M/uL Hgb (12.0-15.0) g/dL Hct (36.0-48.0) % MCV (80-98) fL MCH (27-31) pg MCHC (32-36) % Plt Count (150-400) K/uL Neut % (Auto) (36-66) % Lymph % (Auto) (24-44) % Caroline % (Auto) (2-6) % Eos % (Auto) (2-4) % Baso % (Auto) (0-1) % D-Dimer, Quantitative (0.0-500.0) ng/mL Sodium (140-148) mmol/L Potassium (3.6-5.2) mmol/L Chloride (100-108) mmol/L Carbon Dioxide (21-32) mmol/L Anion Gap (5.0-14.0) mmol/L BUN (7-18) mg/dL Creatinine (0.6-1.0) mg/dL Est Cr Clr Drug Dosing mL/min Estimated GFR (MDRD) (>60) Glucose (74-106) mg/dL Lactic Acid (0.4-2.0) mmol/L Calcium (8.5-10.1) mg/dL Total Bilirubin (0.2-1.0) mg/dL AST (15-37) U/L ALT (12-78) U/L Alkaline Phosphatase (46-116) U/L C-Reactive Protein (0.0-0.3) mg/dL Total Protein (6.4-8.2) g/dL Albumin (3.4-5.0) g/dL Globulin (2.3-3.5) g/dL Albumin/Globulin Ratio (1.2-2.2) Urine Color (YELLOW) Urine Appearance (CLEAR) Urine pH (5.0-8.0) Ur Specific [place] (1.008-1.030) Urine Protein (NEGATIVE) mg/dL Urine Glucose (UA) (NEGATIVE) mg/dL Urine Ketones (NEGATIVE) mg/dL Urine Occult Blood (NEGATIVE) Urine Nitrite (NEGATIVE) Urine Bilirubin (NEGATIVE) Urine Urobilinogen (0.2-1.0) EU/dL Ur Leukocyte Esterase (NEGATIVE) Urine RBC (0-5) Urine WBC (0-5) Ur Epithelial Cells Amorphous Sediment Urine Bacteria Urine Mucus SARS CoV-2 RNA Rapid [facility] Negative Meds: Medications Generic Name Dose Route Start Last Admin Trade Name Freq PRN Reason Stop Dose Admin Sodium Chloride 1,000 mls @ 500 mls/hr 06/17/21 17:15 06/17/21 17:39 Normal Saline IV 500 mls/hr ASDIRECTED MICHAEL Administration Sodium Chloride 1,000 mls @ 999 mls/hr 06/17/21 18:45 06/17/21 20:45 Normal Saline IV 999 mls/hr ASDIRECTED MICHAEL Administration Sodium Chloride 10 ml 06/17/21 17:08 06/17/21 21:51 Sodium Chloride 0.9% 10 Ml Syringe FLUSH 10 ml ASDIRECTED PRN Administration Keep Vein Open Discontinued Medications Generic Name Dose Route Start Last Admin Trade Name Carlosq PRN Reason Stop Dose Admin Acetaminophen 1,000 mg 06/17/21 21:27 06/17/21 21:47 Acetaminophen 500 Mg Tab PO 06/17/21 21:28 1,000 mg ONETIME ONE Administration Ceftriaxone Sodium 1 gm/ 50 mls @ 100 mls/hr 06/17/21 17:08 06/17/21 17:47 Sodium Chloride IV 06/17/21 17:37 100 mls/hr ONETIME ONE Administration Potassium Chloride 40 meq 06/17/21 21:51 06/17/21 21:59 Potassium Chloride 20 Meq Tab.Er PO 06/17/21 21:52 40 meq ONETIME ONE Administration - Re-Assessments/Exams Free Text/Narrative Re-Assessment/Exam: 06/17/21 22:17 Spiked a fever later in her ER course. Acetaminophen given. Did well walking to the bathroom and back. Lives with her . Will d/c with clinic follow up tomorrow. Departure - Departure Time of Disposition: 22:25 Condition: Fair - Discharge Information *PRESCRIPTION DRUG MONITORING PROGRAM REVIEWED*: Not Applicable *COPY OF PRESCRIPTION DRUG MONITORING REPORT IN PATIENT HOWIE: Not Applicable Sepsis Event Note (ED) - Focused Exam Vital Signs: Vital Signs Temp Temp Pulse Resp BP Pulse Ox 06/17/21 22:12 37.7 C 06/17/21 21:47 40 C H 06/17/21 21:31 128 H 20 107/70 96 06/17/21 20:59 119 H 27 H 94/49 L 98 06/17/21 20:14 114 H 26 H 122/70 98 06/17/21 18:25 124 H 24 H 105/55 L 98 06/17/21 17:09 116 H 26 H 114/71 100 06/17/21 16:11 111 H 18 114/68 99 06/17/21 15:37 122 H 20 121/60 99 06/17/21 14:31 37.3 C 130 H 20 146/78 H 99
[2021-06-17] MEDS ORDERED: Sodium Chloride 0.9% 10 ML Syringe FLUSH PRN (17:08)
[2021-06-17] MEDS ORDERED: cefTRIAXone 1 GM in Sodium Chloride 0.9% 50 ML IV ONE (17:08)
[2021-06-17] MEDS ORDERED: Sodium Chloride 0.9% 1,000 ML IV SCH ×2 (17:15→18:45)
[2021-06-17] MEDS ORDERED: Acetaminophen 500 MG Tab PO ONE (21:27)
[2021-06-17] MEDS ORDERED: Potassium Chloride 20 MEQ Tab.ER PO ONE (21:51)
== END 2021-06-17 22:45 | disposition home or self-care (01) ==
LOC: JP.ED 12:45
DX: N30.90 Cystitis, unspecified without hematuria (principal); T50.Z95A Adverse effect of other vaccines and biological substances, initial encounter; E86.0 Dehydration; E87.6 Hypokalemia; Z88.5 Allergy status to narcotic agent; Z91.013 Allergy to seafood; Z88.8 Allergy status to other drugs, medicaments and biological substances; Z20.822 Contact with and (suspected) exposure to COVID-19
CPT/HCPCS: 36415; 80053; 81001; 83605; 85025; 85379; 86140; 87086; 87635; 96365; 99283; A9270; J0696; J7030; U0002

== ENCOUNTER 2022-05-16 03:30 | Emergency (ER) | payer BC ==
[2022-05-16] MEDS: Ketorolac 30 MG/ML SDV IM ONE (04:10)
[2022-05-16] MEDS: Methocarbamol 500 MG Tab PO ONE (04:10)
== END 2022-05-16 05:12 | disposition home or self-care (01) ==
LOC: JP.ED 03:30
DX: G24.3 Spasmodic torticollis (principal); M62.838 Other muscle spasm; J45.909 Unspecified asthma, uncomplicated; Z88.5 Allergy status to narcotic agent; Z91.041 Radiographic dye allergy status; Z91.013 Allergy to seafood; Z88.8 Allergy status to other drugs, medicaments and biological substances; Z79.899 Other long term (current) drug therapy
CPT/HCPCS: 96372; 99283; A9270; J1885

== ENCOUNTER 2023-01-11 08:32 | Emergency (ER) | payer BC ==
[2023-01-11] MEDS ORDERED: Albuterol/Ipratropium 3.0-0.5 MG/3 ML Neb Soln NEB ONE (09:47)
[2023-01-11] MEDS ORDERED: Sodium Chloride 0.9% 10 ML Syringe FLUSH PRN (09:47)
[2023-01-11] MEDS ORDERED: Sodium Chloride 0.9% 1,000 ML IV SCH (10:00)
[2023-01-11] MEDS ORDERED: diphenhydrAMINE 50 MG/ML SDV IVPUSH ONE (10:37)
[2023-01-11] MEDS ORDERED: Iopamidol 755 Mg/ML 100 ML Bottle IV ONE (11:16)
[2023-01-11] MEDS ORDERED: Sodium Chloride 0.9% 75 ML IV SCH (11:30)
== END 2023-01-11 12:52 | disposition home or self-care (01) ==
LOC: JP.ED 08:32
DX: R06.02 Shortness of breath (principal); R06.01 Orthopnea; J45.909 Unspecified asthma, uncomplicated; K21.9 Gastro-esophageal reflux disease without esophagitis; Z88.5 Allergy status to narcotic agent; Z88.7 Allergy status to serum and vaccine; Z91.041 Radiographic dye allergy status
CPT/HCPCS: 71275; 94640; 96374; 99285; J1200; J3490; J7030; Q9967; J7620

== ENCOUNTER 2023-04-04 19:42 | Emergency (ER) | payer BC ==
[2023-04-04] MEDS ORDERED: Ketorolac 30 MG/ML SDV IM ONE (22:19)
[2023-04-04] MEDS ORDERED: Ondansetron 4 MG Tab.DIS PO ONE (22:19)
== END 2023-04-04 23:37 | disposition home or self-care (01) ==
LOC: JP.ED 19:42
DX: H66.91 Otitis media, unspecified, right ear (principal); J01.90 Acute sinusitis, unspecified; J45.909 Unspecified asthma, uncomplicated; Z79.899 Other long term (current) drug therapy; Z88.8 Allergy status to other drugs, medicaments and biological substances; Z91.041 Radiographic dye allergy status; Z91.013 Allergy to seafood; Z88.5 Allergy status to narcotic agent; Z88.7 Allergy status to serum and vaccine
CPT/HCPCS: 96372; 99283; J1885; Q0162